=== PATIENT | female | born 1985 | race Caucasian/White ===

== ENCOUNTER 2016-06-20 09:46 | Emergency (ER) | payer OTHER ==
[~2016-06-20] VITALS: Ht 165.1 cm; Wt 63.6 kg
[2016-06-20 09:51] VITALS: BP 115/76; PULSE 90; RESP 12; O2SAT 100
--- NOTE | 2016-06-20 10:00 | ED.REPORT ---
HPI-Abd Pain F Under 40 Date of Service June 20, 2016 ED Provider: Joseline Felix MD The patient is a 31 year old female with history of cervical cancer s/p LEEP, who presents to the emergency department complaining of lower abdominal pain that began earlier today. At onset she also noticed lightheadedness, chills, nausea, and vomiting. Her pain has been waxing and waning since onset today. She had similar pain about 1 month ago that lasted for 2 weeks. The pain stopped about 2 weeks ago then returned today. She denies fever, diarrhea, constipation, hematochezia, dysuria, hematuria, vaginal discharge or vaginal bleeding. She is currently receiving the Depo Provera injections. She has not had a menstrual period for a few years. Nursing Notes Stated Complaint: LOWER ABDOMINAL PAIN/DIZZY Chief Complaint: Female Abdominal Pain Nursing Notes Reviewed: Yes Allergies: Coded Allergies: No Known Allergies (Verified , 01/09/04) Scheduled PRN oxyCODONE-Acetaminophen 5-325 mg (oxyCODONE-Acetaminophen 5-325 mg) 1 Each Tablet 1-2 TAB PO Q6H PRN PRN For Pain General Time Seen by MD: 09:57 Chief Complaint Abdominal pain Hx Obtained From: Patient, Spouse Arrived By: Walk-in Sudden in Onset?: Yes Onset Occurred: 1 - 4 hours ago Symptom Duration: Waxes and wanes Progression since Onset: Waxes and wanes, Gradually worsening Location: : Abdomen lower Quality: Painful Severity: Current: Moderate Severity: Maximum: Severe Associated with: Reports: Chills, Nausea, Vomiting, Denies: Constipation, Diarrhea, Dysuria, Fever, Hematochezia, Hematuria, Urinary frequency, Urinary retention, Urinary tract symptoms Additional Notes: +lightheadedness Pertinent Negative: Pt denies other symptoms Recent Healthcare: No recent doctor visit, No recent hospitalization Similar Sx Previous: Yes Past Medical History Past Medical History Cervical cancer s/p LEEP Past Surgical History LEEP procedure Family History Noncontributory Smoking History Never Smoker Social History Drug Use: Denies drug use Other Social History: Good social support, , Lives with children, Local resident Ambulatory Status Independent Review of Systems Constitutional: Reports: Chills, Denies: Fever GI: Reports: Abdominal pain, Nausea, Vomiting, Denies: Constipation, Diarrhea, Hematochezia Female: Denies: Dysuria, Hematuria, Vaginal bleeding - abnl, Vaginal discharge Complete sys rev & neg: except as marked. Neurologic: Reports: Lightheaded Physical Exam Initial Vital Signs Vital Signs (First) Date Time Temp Pulse Resp B/P Pulse Ox O2 Delivery O2 Flow Rate FiO2 06/20/16 09:51 36.5 90 12 115/76 100 Room Air Initial VS: Reviewed Head / Eyes: Atraumatic, Normocephalic, PERRL ENT: Mucous membranes moist, Conjunctiva normal, No scleral icterus Neck: Supple, Non-tender, Full range of motion Lymphatic: No lymphadenopathy Extremities: Vascular intact, Neuro intact, No swelling, No tenderness Skin: Warm, Dry, No cyanosis Neurologic: Alert, Oriented, Nonfocal Psychiatric: Mood/affect normal, Behavior normal, Normal thought content General/Constitutional: Awake, Alert, No acute distress, Well appearing, Cooperative Respiratory / Chest: Atraumatic, Breath sounds NL, Breath sounds = bilat, No respiratory distress, No rales, No rhonchi, No wheezing Cardiovascular: Heart rate NL, Regular rhythm, Heart sounds NL, No gallop, No murmurs, No rubs, Peripheral circulation NL Abdomen: Atraumatic, Soft, No guarding, No rebound, BS normoactive, No distention, No hernia, No palpable mass, No pulsatile mass Tenderness/Guarding/Rebound: Negative: Tender LLQ..., Tender LUQ..., Tender RLQ..., Tender RUQ..., Tender epigastric, Tender suprapubic Back: Inspection NL, Non-tender, No CVA tenderness Female Genitourinary: Atraumatic, External genitalia NL, No bleeding, No discharge, No cervical motion tend, No lesions or rash Uterus is at an 8 week size. Bilateral adnexal tenderness, more on the right than left. Interpretation & Diagnostics Due to technical difficulties our radiology US machine is down. So a bedside ultrasound was completed which showed: Physiological free fluid. No large adnexal cysts that are obvious. Uterus measuring at 5.5x4.2x5.0 with technically thin endometrium but there is 2.3 cm of echogenic fluid within the uterine cavity. We were able to get a formal ultrasound before the patient left the department: PROCEDURE: US PELVIC SONOGRAM + TRANSVAGINAL SONOGRAM IMPRESSION: 1. Complex fluid noted throughout the hand though from each renal and endocervical canal which appears dynamic which likely relates to retained hemorrhagic products but pyogenic fluid cannot be excluded nor a cervical stenosis as the cause of the underlying abnormality. Recommend gynecologic consultation. Dr. Felix given results in 1306 hrs. 06/20/2016. Dictated by: Ollie YOUNG Interpreted: Prakash Wick MD on 06/20/2016 at 13:01 Lab Results Interpretation Test 06/20/16 10:25 Hold Purple Top Tube Received (Received) Hold Blue Top Tube Received (Received) Hold Urine Received (Received) Hold Pearl Top Tube Received (Received) Hold Pate Top Tube Received (Received) Lab Results Interpretation: IMPRESSION: 1. Complex fluid noted throughout the endocervical canal which appears dynamic which likely relates to retained hemorrhagic products but pyogenic fluid cannot be excluded nor a cervical stenosis as the cause of the underlying abnormality. Recommend gynecologic consultation. Dr. Felix given results in 1306 hrs. 06/20/2016. Dictated by: Ollie YOUNG Interpreted: Prakash Wick MD on 06/20/2016 at 13:01 Re-Eval/Medical Decision Source of Hx: Old records Re-Evaluation/Progress #1: Time of Eval: 10:13 Re-Evaluation/Progress Note: Discussed plan for exam and workup. Re-Evaluation/Progress #2: Time of Eval: 10:50 Re-Evaluation/Progress Note: The patient's pain has improved with medication. Re-Evaluation/Progress #3: Time of Eval: 11:53 Re-Evaluation/Progress Note: Rechecked the patient. Discussed plan for discharge with outpatient followup. All questions were addressed. Consultation : Referral / Consult Name: Josh Townsend MD Call Returned at: 11:44 Note: Spoke with the on-call OBGYN. Discussed the patient's ultrasound and exam findings. She agrees with plan for discharge with close outpatient followup. The patient needs to call [facility] to schedule an appointment. Once her name is in the system Dr. Townsend's assitance will arrange for an outpatient ultrasound prior to the appointment. Counseled Regarding: Diagnosis, Lab results, Need for follow-up, When/why to return to ED Discharge & Departure Primary Impression: Pelvic pain Disposition: Home Discharge Condition All VS Reviewed: Yes Condition: Stable Additional Instructions: Thank you for entrusting us with your care today. The ultrasound was not completely normal and I do not have a full explanation for your pain. The formal ultrasound was able to be done in the ER and results will got to Dr Townsend It is important that you followup with an OBGYN in the next few days. We have given you a referral to Dr. Townsend's office. Call today to schedule the followup appointment. It will help Dr Townsend if you are able to get the records regarding your prior LEEP procedure and the pathology associated with that sent to her, or get copies you can simply give to her. Seek care for increased pain, vaginal bleeding, fever, vomiting, or any other new or concerning symptoms. Use ibuprofen for moderate pain and percoset for severe pain as needed Referrals: Josh Townsend MD Attestation Portions of this note were transcribed by Griselda Yuen. I, Dr. Felix, personally performed the history, physical exam and medical decision-making; I reviewed and confirmed the accuracy of the information in the transcribed note. Signed by: Robel Givens, 06/20/2016 and 1315. copies to: Josh Townsend MD, Shawna L MD June 20, 2016 10:00 Griselda Yuen June 20, 2016 10:03
[2016-06-20] MEDS ORDERED: oxyCODONE-Acetamin 5-325 mg Tablet PO ONE (10:05)
[2016-06-20] MEDS ORDERED: OXYC1TAB24 PO (12:12)
[2016-06-20 12:20] VITALS: BP 121/59; PULSE 76; RESP 18; O2SAT 98
--- NOTE | 2016-06-20 13:07 | DRSVH ---
PROCEDURE: US PELVIC SONOGRAM + TRANSVAGINAL SONOGRAM INDICATIONS: bilateral adnexal pain TECHNIQUE: Real-time scanning was performed of the pelvic organs, with image documentation. Additional endovagi nal scanning was necessary due to incomplete visualization of the adnexal and endometrial structures by transabdominal scanning. COMPARISON: None. FINDINGS: (orthogonal measurements) Uterus size: 8.86 cm, 4.55 cm, 5.94 cm Right ovary size: 1.87 cm, 3.75 cm, 3.79 cm Left ovary size: 2.68 cm, 3.25 cm, 2.94 cm Transabdominal scanning: Limited scanning through the kidneys shows no hydronephrosis. No pathologi c free abdominal or pelvic fluid. Endovaginal scanning: Uterus: Uterus is normal in size and appearance. Complex, dynamic fluid visualized throughout the e ndometrial and endocervical canal suspicious for retained hemorrhagic products although a pyogenic ma terial cannot be excluded. Ovaries: Within normal physiologic limits. IMPRESSION: 1. Complex fluid noted throughout the endocervical canal which appears dynamic which likely relates t o retained hemorrhagic products but pyogenic fluid cannot be excluded nor a cervical stenosis as the cause of the underlying abnormality. Recommend gynecologic consultation. Dr. Felix given results in 1306 hrs. 06/20/2016. Dictated by: Ollie Key RR Interpreted: Prakash Wick MD on 06/20/2016 at 13:01 Transcribed by: LILY on 06/20/2016 at 13:06 Approved by: Prakash Wick M.D. on 06/20/2016 at 13:42
== END 2016-06-20 12:21 | disposition home or self-care (01) ==
LOC: SED 09:46
DX: R10.2 Pelvic and perineal pain (principal); Z85.41 Personal history of malignant neoplasm of cervix uteri
CPT/HCPCS: 76830; 76856; 81025; 96374; 99284; J1885